=== PATIENT | female | born 1990 | race African-American/Black ===

== ENCOUNTER 2017-03-09 08:26 | Day surgery (SDC) | payer OTHER ==
[2017-03-06 10:59] LABS: HEMATOCRIT 38.7 % (36.0-47.0); HEMOGLOBIN 12.8 g/dL (12.0-15.5); HGB HCT DIFFERENCE -0.3; MEAN CORPUSCULAR HEMOGLOBIN 28.2 pg (27.0-33.4); MEAN CORPUSCULAR VOLUME 86 fl (80-97); RED BLOOD COUNT 4.52 10^6/uL (3.72-5.28); WHITE BLOOD COUNT 6.7 10^3/uL (4.0-10.5)
[2017-03-06 11:05] LABS: PROTHROMBIN TIME 12.2 SEC (11.4-15.4)
[2017-03-06 11:06] LABS: PARTIAL THROMBOPLASTIN TIME 31.6 SEC (23.5-35.8)
[~2017-03-09 08:26] MED LIST: DOXYCYCLINE HYCLATE 100 MG TABLET PO PRN; DOXYCYCLINE HYCLATE 100 MG in DEXTROSE 5%-WATER 250 ML IV PRN; LACTATED RINGERS 1000 ML IV PRN; LIDOCAINE 0.5% INJ-PF (5 MG/ML) 50 ML SDV SUBCUT PRN; LIDOCAINE 1%/EPINEPHRINE INJ 20 ML VIAL ONE; RINGERS SOLUTION,LACTATED 1,000 ML IV PRN
[2017-03-09] MEDS ORDERED: FENTANYL CITRATE INJ/PF 100 MCG/2 ML AMPUL ONE (09:54)
[2017-03-09] MEDS ORDERED: DEXMEDETOMIDINE INJ 80 MCG/20 ML VIAL IV ONE (09:55)
[2017-03-09] MEDS ORDERED: MIDAZOLAM 2 MG/2 ML INJ ONE (09:55)
[2017-03-09] MEDS ORDERED: PROPOFOL INJ 200 MG/20 ML VIAL IV ONE (09:55)
[2017-03-09] MEDS ORDERED: FENTANYL CITRATE INJ/PF 100 MCG/2 ML AMPUL IV PRN ×3 (10:31)
[2017-03-09] MEDS ORDERED: MORPHINE SULFATE 10 MG/ML INJ IV PRN ×3 (10:31→11:35)
[2017-03-09] MEDS ORDERED: DIPHENHYDRAMINE HCL 50 MG/ML VIAL IV PRN (10:31)
[2017-03-09] MEDS ORDERED: MEPERIDINE HCL/PF INJ 25 MG/1 ML DISP.SYRIN IV PRN (10:31)
[2017-03-09] MEDS ORDERED: PROMETHAZINE HCL INJ 25 MG/1 ML VIAL IV PRN ×3 (10:31→11:46)
[2017-03-09] MEDS ORDERED: OXYCODONE-ACETAMINOPHEN 5-325 MG TABLET PO PRN ×2 (10:31)
[2017-03-09] MEDS ORDERED: ONDANSETRON HCL INJ/PF 4 MG/2 ML SDV IV PRN ×2 (10:36→11:37)
[2017-03-09] MEDS ORDERED: ACETAMINOPHEN 100 ML IV ONE (11:13)
[2017-03-09] MEDS ORDERED: KETOROLAC TROMETHAMINE INJ/PF 30 MG/1 ML SDV ONE (11:14)
[2017-03-09] MEDS ORDERED: DEXAMETHASONE SOD PHOSPHATE INJ 4 MG/1 ML VIAL ONE (12:20)
[2017-03-09] MEDS ORDERED: ONDANSETRON HCL INJ/PF 4 MG/2 ML SDV ONE (12:20)
[2017-03-09] MEDS ORDERED: SUCCINYLCHOLINE CHLORIDE INJ 200 MG/10 ML VIAL ONE (12:20)
[2017-03-09] MEDS ORDERED: LIDOCAINE 2% INJ-PF (20 MG/ML) 10 ML AMPUL ONE (12:20)
[2017-03-09 12:59] VITALS: BP 115/67
--- NOTE | 2017-03-16 11:23 | OPERATIVE REPORT E ---
Operative Report NAME: GRAEME NGUYEN : 1990 AGE: 27Y DATE OF SURGERY: 03/09/2107 ROOM: INDICATIONS: This is a 27-year-old female with abnormal bleeding with previous study showing possible endometrial polyps. After discussing risks, benefits, alternatives, indications, patient desires hysteroscopic removal of endometrial polyps for abnormal uterine bleeding. PREOPERATIVE DIAGNOSIS: Endometrial polyps. POSTOPERATIVE DIAGNOSIS: Endometrial polyps. PROCEDURE PERFORMED: Diagnostic hysteroscopy and D and C. PRIMARY SURGEON: BRENDA NAIK M.D. SUPERVISOR SOLDER MAKING: Meghana Landa M.D. ESTIMATED BLOOD LOSS: 10 mL. TOTAL INTRAVENOUS: 600 mL. TOTAL URINE OUTPUT: 80 mL. FINDINGS: 1. Mildly irregular endometrium with small fingerlike polypoid projections in lower uterine segment posteriorly and on the right hand side. No evidence of large polypoid lesions. 2. Normal appearing uterine cavity with patent bilateral tubal ostia. SPECIMENS: Endometrial curettings. PROCEDURE IN DETAIL: After confirming consent with the patient in preop hold area, the patient was taken back to the main OR where general anesthesia was found to be adequate. The patient was then placed in high lithotomy position and prepped and draped in a sterile fashion. Time out was performed. No antibiotics were given. Attention was turned to the patient's vagina. A weighted speculum was placed and a Armstrong retractor used. Anterior lip of the cervix was then grasped with a single-tooth tenaculum. The cervix was then serially dilated up to an 18-Egyptian using Hegar dilators. Prior to this, a paracervical block with 1% lidocaine was done bilaterally at the 3 and 9 o'clock positions. After this, a hysteroscope was introduced into the uterus with findings as noted above. Operative hysteroscope was decided not to be used as no large lesions requiring advanced device was required. Decision was made for D and C. A sharp curettage was then performed of the uterus and specimen was sent off to pathology as endometrial curettings. The scope was reintroduced into the uterus with removal of small polypoid lesions as noted above and otherwise submitted with endometrium. At this point in time, the procedure was deemed complete. All instruments were removed from the vagina and the single-tooth tenaculum removed. Tenaculums sites were made hemostatic with silver nitrate. The patient was then taken out of high lithotomy position and placed on the table in supine position. The patient recovered from anesthesia without difficulty. All sponge, needle, and instrument counts were correct x2. The patient was taken to the PACU in stable condition. DICTATING PHYSICIAN: BRENDA NAIK M.D. [id number] PHY#: [id number] ID: [id number] JOB#: [id number] ACCT: [id number] cc:BRENDA NAIK M.D. >
== END 2017-03-09 12:50 | disposition home or self-care (01) ==
LOC: OROUT 08:26
PROVIDERS: ATTEND Obstetrics & Gynecology
PROC: 0UDB8ZX Extraction of Endometrium, Via Natural or Artificial Opening Endoscopic, Diagnostic (ICD-10-PCS; principal; 2017-03-09 10:30)
DX: N84.0 Polyp of corpus uteri (principal); N93.9 Abnormal uterine and vaginal bleeding, unspecified; E28.2 Polycystic ovarian syndrome; J45.909 Unspecified asthma, uncomplicated; D64.9 Anemia, unspecified; Z88.1 Allergy status to other antibiotic agents; Z79.3 Long term (current) use of hormonal contraceptives
CPT/HCPCS: 86900; 86901; 36415; 86850; 85027; 85610; 85730; 81025; 88305 ×2; 58558; J2250; J1100; J3490 ×4; J3010; J1885; J0330; J2405; J7060; J2704; J0131; 952